=== PATIENT | male | born 1965 | race Caucasian/White ===

== ENCOUNTER 2018-11-09 08:49 | Day surgery (SDC) | payer OTHER ==
[2018-11-09] MEDS ORDERED: LIDOCAINE-MPF 2% 5 ML VIAL IM ONE (08:50)
[2018-11-09] MEDS ORDERED: NEOSTIGMINE 1 MG/1 ML 10 ML MDV IVP ONE (08:50)
[2018-11-09] MEDS ORDERED: fentaNYL 100 MCG/2 ML VIAL IVP ONE (08:50)
[2018-11-09] MEDS ORDERED: PROPOFOL 200 MG/20 ML VIAL IVP ONE (08:50)
[2018-11-09] MEDS ORDERED: ePHEDrine 50 MG/ML VIAL IVP ONE (08:50)
[2018-11-09] MEDS ORDERED: KETOROLAC 30 MG/ML VIAL IVP ONE (08:50)
[2018-11-09] MEDS ORDERED: MIDAZOLAM 2 MG/2 ML VIAL IVP ONE (08:50)
[2018-11-09] MEDS ORDERED: DEXAMETHASONE 4 MG/ML VIAL IVP ONE (08:50)
[2018-11-09] MEDS ORDERED: ONDANSETRON 4 MG/2 ML VIAL IVP ONE (08:50)
[2018-11-09] MEDS ORDERED: LACTATED RINGERS 1,000 ML IV ONE ×2 (08:52→10:36)
[2018-11-09] MEDS ORDERED: CEFAZOLIN SODIUM IN 0.9 % NACL 2 GM/100 ML BAG IV ONE (09:02)
--- NOTE | 2018-11-09 09:34 | ANESTHESIA ---
Pre-Anesthesia VS, & Labs - Diagnosis bilateral inguinal hernias - Procedure Bilateral inguinal hernia repair Vital Signs: Temp Pulse Resp BP Pulse Ox 36.2 C L 71 15 138/89 H 98 11/09/18 09:03 11/09/18 09:03 11/09/18 09:03 11/09/18 09:03 11/09/18 09:03 Height 6 ft 3 in Weight (kg) 110 kg Body Mass Index 32.5 - NPO >8 hours Home Medications and Allergies Home Medications: Ambulatory Orders Ibuprofen [Motrin] 400 mg PO Q6H PRN 11/03/18 traMADol [Ultram] 50 mg PO Q4-6H 11/03/18 Omeprazole [Prilosec] 20 mg PO DAILY 03/03/14 Ibuprofen [Motrin] 400 mg PO Q6H PRN 11/03/18 traMADol [Ultram] 50 mg PO Q4-6H 11/03/18 Allergies/Adverse Reactions: Allergies Allergy/AdvReac Type Severity Reaction Status Date / Time phenobarbital Allergy Hives Verified 07/09/14 07:15 Sulfa (Sulfonamide Allergy Rash Verified 07/09/14 07:15 Antibiotics) Anes History & Medical History - Anesthetic History Anesthesia Complications: reports: No previous complications - Medical History Cardiovascular: reports: None Pulmonary: reports: None Gastrointestinal: reports: GERD Urinary: reports: None Musculoskeletal: reports: Scoliosis, Chronic back pain Endocrine/Autoimmune: reports: None, Other (obesity) Skin: reports: None Smoking Status: Never smoker - Surgical History Eyes Ears Nose Throat (EENT): Cataracts Dermatologic: Skin grafts Exam General: Alert Dental: WNL Mouth Opening: Greater than 4 Fingerbreadths Neck Mobility: Normal Mallampati classification: I Respiratory: Lungs clear Cardiovascular: Regular rate, Normal S1, Normal S2 Mental/Cognitive Status: Alert/Oriented X3 Plan Anesthesia Type: General Consent for Procedure(s) Verified and Reviewed: Yes Code Status: Attempt Resuscitation ASA classification: 2-Mild systemic disease Is this case an emergency?: No
[2018-11-09] MEDS ORDERED: BUPIVACAINE 0.5%-EPI 1:200000 PF 30 ML VIAL ONE (09:37)
[2018-11-09] MEDS ORDERED: LIDOCAINE-MPF 1% 30 ML VIAL ONE (09:37)
[2018-11-09] MEDS ORDERED: LIDOCAINE 1% 10 ML MDV SUBQ ONE ×2 (09:57)
[2018-11-09] MEDS ORDERED: BUPIVACAINE 0.5%-EPI 1:200000 PF 30 ML VIAL SUBQ ONE ×2 (09:57)
[2018-11-09] MEDS ORDERED: SODIUM CHLORIDE 0.9% 10 ML ONE (10:08)
[2018-11-09] MEDS ORDERED: ceFAZolin 1 GM VIAL ONE (10:09)
[2018-11-09] MEDS ORDERED: ceFAZolin 1 GM VIAL IR ONE (11:28)
--- NOTE | 2018-11-09 11:44 | OPERATIVE REPORT ---
Operative Report - General Planned Procedure: Bilateral Inguinal Hernia Repairs Pre-Op Diagnosis: Bilateral Inguinal Hernias Procedure Performed: Bilateral Inguinal Hernia Repairs Post Op Diagnosis: Same - Procedure Note Primary Surgeon: Usha Anesthesia Provider: DEAN Valencia Anesthesia Technique: General LMA, Local Pathology: None Findings: 1. Very large indirect inguinal hernia on the left 2. Large indirect inguinal hernia on the right Complications: None apparent - Other Other Information/Narrative: After obtaining informed consent, the patient is brought to the operating room and placed in the supine position on the operating table. Following successful induction of general anesthesia, appropriate padding of all bony prominences, and placement of appropriate monitors, the abdomen was prepped and draped in the standard surgical fashion. A timeout was held per [facility]AP protocol. All elements of the perioperative safety checklist were observed before, during and at the end of the procedure. We began with an ileal inguinal nerve block by infiltrating a mixture of local anesthetics medial to the anterior superior iliac spine on the left. We then continued by infiltrating a site for the incision in the left lower quadrant with the same mixture of local anesthetics. An incision was created and carried down through the skin and subtendinous tissue to reveal the fascia of the external oblique aponeurosis. The aponeurosis was opened in the direction of its fibers. The fibers were reflected laterally. The ilioinguinal nerve was carefully identified and avoided. The spermatic cord and hernia sac were en circled with a Granville drain. The hernia sac and a small cord lipoma were then carefully dissected from the cord structures and reduced back into the abdominal cavity. The hernia was noted to be a very large indirect defect. The contents of the hernia included perperitoneal fat and a portion of colon. We then repaired the hernia using an extended piece of Prolene hernia system mesh. This was deployed into the preperitoneal space with the posterior leaflet straightened and flattened in the space. A akhil was then created in the overlying leaflet in the lateral aspect for placement of the spermatic cord. Spermatic cord was then gently placed in this space and the leaflets sewn closed. The spermatic cord was seen to lay without tension on the surface of the anterior leaflet. The anterior leaflet was then sewn to the pubic tubercle with a single 0 Vicryl stitch. The lateral aspect of the leaflet was then tucked under the external oblique aponeurosis. The wound was checked for hemo stasis. The leaflets were then reapproximated after carefully replacing the ilioinguinal nerve on the surface of the spermatic cord. The leaflets were then closed with a running Vicryl suture. The wound was checked once again for hemostasis and irrigated again Marcus's fascia was then reapproximated and Monocryl stitches were placed in the skin. We turned our attention down to the right inguinal hernia. We began with an ileal inguinal nerve block by infiltrating a mixture of local anesthetics medial to the anterior superior iliac spine on the right. We then continued by infiltrating a site for the incision in the right lower quadrant with the same mixture of local anesthetics. An incision was created and carried down through the skin and subtendinous tissue to reveal the fascia of the external oblique aponeurosis. The aponeurosis was opened in the direction of its fibers. The fibers were reflected laterally. The ilioinguinal nerve was carefully identified and avoided. The spermatic cord and hernia sac were encircled with a Granville drain. The hernia sac and a small cord lipoma were then carefully dissected from the cord structures and reduced back into the abdominal cavity. The hernia was noted to be a large indirect inguinal hernia containing perperitoneal fat. We then repaired the hernia using an extended piece of Prolene hernia system mesh. This was deployed into the preperitoneal space with the posterior leaflet straightened and flattened in the space. A akhil was then created in the overlying leaflet in the lateral aspect for placement of the spermatic cord. Spermatic cord was then gently placed in this space and the leaflets sewn closed. The spermatic cord was seen to lay without tension on the surface of the anterior leaflet. The anterior leaflet was then sewn to the pubic tubercle with a single 0 Vicryl stitch. The lateral aspect of the leaflet was then tucked under the external oblique aponeurosis. The wound was checked for hemostasis. The leaflets were then reapproximated after carefully replacing the ilioinguinal nerve on the surface of the spermatic cord. The leaflets were then closed with a running Vicryl suture. The wound was checked once again for hemostasis and irrigated again Marcus's fascia was then reapproximated and Monocryl stitches were placed in the skin. All sponge, needle, and instrument counts were correct at the conclusion of the case. The patient was allowed to awake from anesthesia without difficulty and taken to the postanesthesia care unit in good condition.
[2018-11-09] MEDS ORDERED: ONDANSETRON 4 MG/2 ML VIAL IVP PRN (11:52)
[2018-11-09] MEDS ORDERED: HYDROmorphone 0.5 MG/0.5 ML SYRINGE IVP PRN (11:52)
[2018-11-09] MEDS ORDERED: oxyCODONE 5 MG TABLET PO PRN (11:52)
[2018-11-09 12:50] VITALS: BP 135/75
== END 2018-11-09 08:50 | disposition home or self-care (01) ==
LOC: SDS 08:49
PROVIDERS: ATTEND Surgery
PROC: 0VBH0ZZ Excision of Bilateral Spermatic Cords, Open Approach (ICD-10-PCS; 2018-11-09)
PROC: 0YUA0JZ Supplement Bilateral Inguinal Region with Synthetic Substitute, Open Approach (ICD-10-PCS; principal; 2018-11-09 10:30)
DX: K40.20 Bilateral inguinal hernia, without obstruction or gangrene, not specified as recurrent (principal); D17.6 Benign lipomatous neoplasm of spermatic cord; Z87.891 Personal history of nicotine dependence
CPT/HCPCS: 49505; 55520; A9270; C1713; J0690; J7120

== ENCOUNTER 2018-11-26 08:28 | Outpatient (CLI) | payer OTHER | END 2018-11-26 08:29 | disposition home or self-care (01) | LOC: RT 08:28 | PROVIDERS: ATTEND Surgery | DX: K40.20 Bilateral inguinal hernia, without obstruction or gangrene, not specified as recurrent (principal) | CPT/HCPCS: 93005 ==

== ENCOUNTER 2020-04-10 15:29 | Outpatient (CLI) | payer OTHER ==
--- NOTE | 2020-04-10 17:19 | MRI Report ---
PROCEDURE: Shoulder RT W/O INDICATIONS: RT SHOULDER PAIN TECHNIQUE: Noncontrast oblique coronal T2 fast spin echo with fat saturation, oblique sagittal T1 spin echo and T2 fast spin echo with fat saturation, axial T1 spin echo and T2 fast spin echo with fat saturation t hrough the shoulder. COMPARISON: None. FINDINGS: Image quality: Motion degraded examination.. Rotator cuff: Mild supraspinatus tendinopathy. No definite high-grade or full-thickness rotator cuff tear. The infr aspinatus teres minor tendons appear intact. Subscapularis tendon appears grossly intact. No atrophy of the rotator cuff muscles although mild fatty aeration of the supraspinatus and infraspinatus. Bones and bursae: No bone marrow contusions or fractures. Mild acromioclavicular joint degeneration. The acromion demonstrates conventional anatomy, without an os acromiale. Trace subacromial/subdeltoid bursal fluid is present. Capsule and soft tissues: Labrum: Blunted appearance of the posterior inferior labrum, with adjacent sclerosis and spurring in the glenoid.. The long head of the biceps tendon demonstrates normal location and morphology. The rotator interval appears normal, without fibrosis. The coracohumeral ligament is normal in thickness. IMPRESSION: Mild supraspinatus tendinopathy without discrete rotator cuff tear. Trace subacromial-subdeltoid bursitis Chronic appearing blunted tear of the posterior inferior labrum with adjacent degenerative changes se en in the glenoid. Reviewed by: Hair Archer MD on 04/10/2020 5:18 PM PST Approved by: Hair Archer MD on 04/10/2020 5:18 PM PST Station ID: [id number]
== END 2020-04-10 15:30 | disposition home or self-care (01) ==
LOC: DI 15:29
PROVIDERS: ATTEND Student in an Organized Health Care Education/Training Program
DX: M75.81 Other shoulder lesions, right shoulder (principal); M75.51 Bursitis of right shoulder; M25.811 Other specified joint disorders, right shoulder